=== PATIENT | female | born 1945 ===

== ENCOUNTER 2017-08-07 12:00 | Outpatient (RCR) | payer MEDICARE ==
[~2017-08-07] VITALS: Ht 154.9 cm; Wt 86.2 kg
== END 2017-08-24 | disposition home or self-care (01) ==
LOC: WCC 12:00
DX: L97.812 Non-pressure chronic ulcer of other part of right lower leg with fat layer exposed (principal); L97.822 Non-pressure chronic ulcer of other part of left lower leg with fat layer exposed; L97.413 Non-pressure chronic ulcer of right heel and midfoot with necrosis of muscle; E11.621 Type 2 diabetes mellitus with foot ulcer; E11.9 Type 2 diabetes mellitus without complications
CPT/HCPCS: 82962; G0277; G0463

== ENCOUNTER 2017-08-07 14:18 | Outpatient (CLI) | payer MEDICARE ==
--- NOTE | 2017-08-07 15:13 | Diagnostic Imaging Report ---
Indication: COUGH Technique: One view of the chest Comparison: none Findings: The heart is markedly enlarged. There is mild interstitial congestion. The right pleural space is clear. The left hemidiaphragm is partially obscured, probably by the enlarged heart but pleural and/or parenchymal disease at the left lung base cannot be completely ruled out. There are degenerative changes of the left shoulder Impression: Cardiomegaly Mild interstitial edema Cannot rule out pleural and/or parenchymal disease in the left lung base
== END 2017-08-07 16:18 | disposition home or self-care (01) ==
LOC: LAB 14:18
DX: R05 Cough (principal); I51.7 Cardiomegaly
CPT/HCPCS: 71010

== ENCOUNTER 2017-08-25 13:00 | Outpatient (RCR) | payer MEDICARE | END 2017-09-24 | disposition home or self-care (01) | LOC: WCC 13:00 | DX: L97.413 Non-pressure chronic ulcer of right heel and midfoot with necrosis of muscle (principal); L97.822 Non-pressure chronic ulcer of other part of left lower leg with fat layer exposed; L97.812 Non-pressure chronic ulcer of other part of right lower leg with fat layer exposed; E11.621 Type 2 diabetes mellitus with foot ulcer | CPT/HCPCS: 82962; G0277 ==